=== PATIENT | male | born 1990 | race African-American/Black ===

== ENCOUNTER 2023-01-29 18:03 | Emergency (ER) | payer OTHER ==
[~2023-01-29 18:03] MED LIST: AMOX1TAB16 MT; BO1 TP; IBUP-2029 MT
[2023-01-29 18:09] VITALS: PULSE 68; RESP 18
== END 2023-01-29 18:31 | disposition left against medical advice (07) ==
LOC: ER 18:03
DX: Z53.21 Procedure and treatment not carried out due to patient leaving prior to being seen by health care provider (principal)
CPT/HCPCS: 99281

== ENCOUNTER 2023-06-14 18:07 | Emergency (ER) | payer SELFPAY ==
[~2023-06-14] VITALS: Ht 180.3 cm; Wt 74.0 kg
[2023-06-14 18:25] VITALS: BP 116/75; PULSE 66; RESP 16; TEMP 97.9; O2SAT 100
[2023-06-14] MEDS ORDERED: IBUP-2030 MT (21:41)
== END 2023-06-14 22:32 | disposition home or self-care (01) ==
LOC: ER 18:07
DX: S62.635A Displaced fracture of distal phalanx of left ring finger, initial encounter for closed fracture (principal); X58.XXXA Exposure to other specified factors, initial encounter; Y93.89 Activity, other specified; Y92.89 Other specified places as the place of occurrence of the external cause; Y99.8 Other external cause status
CPT/HCPCS: 73140; 99283